=== PATIENT | male | born 1995 | race Caucasian/White ===

== ENCOUNTER 2023-07-15 01:00 | Emergency (ER) | payer SELFPAY ==
[~2023-07-15] VITALS: Ht 162.6 cm; Wt 85.0 kg
[2023-07-15 01:21] VITALS: BP 136/92; PULSE 87; RESP 18; TEMP 98.1; O2SAT 98
== END 2023-07-15 01:28 ==
LOC: ER 01:00
DX: R68.89 Other general symptoms and signs (principal)
CPT/HCPCS: 99283